=== PATIENT | male | born 1935 | race Caucasian/White ===

== ENCOUNTER 2019-11-23 13:36 | Inpatient (IN) ==
[2019-11-23] MEDS ORDERED: Isovue-370 500 ML BOTTLE IVP ONE (14:16)
[2019-11-23] MEDS ORDERED: Ondansetron 4 MG/2 ML VIAL IVP ONE (14:17)
[2019-11-23] MEDS ORDERED: Morphine Sulfate 2 MG/ML SYRINGE IVP ONE (14:17)
[2019-11-23] MEDS ORDERED: 0.9 % Sodium Chloride 1,000 ML IV ONE (14:17)
[2019-11-23 14:31] LABS: Basophils # 0.1 K/mcL (0.0-0.2); Basophils % 0.4 %; Eosinophils # 0.1 K/mcL (0.0-0.6); Eosinophils % 0.5 %; Hemoglobin 15.3 g/dL (12.9-16.9); Immature Granulocytes % 1.4 % (0-4); Lymphocytes # 2.6 K/mcL (0.6-4.6); Lymphocytes % 16.7 %; Mean Corpuscular Hemoglobin 30.6 pg (28.0-33.3); Mean Platelet Volume 9.7 fL (9.4-12.4); Monocytes # 1.4 K/mcL (0.0-1.3); Monocytes % 8.8 %; Neutrophils # 11.4 K/mcL (1.6-8.9); Platelet Count 212 K/mcL (140-400); Red Cell Distribution Width 13.8 % (11.5-14.5); Segmented Neutrophils % 72.2 %; White Blood Count 15.8 K/mcL (4.3-11.1)
[2019-11-23 14:57] LABS: Alanine Aminotransferase 23 Units/L (7-52); Albumin 4.4 g/dL (3.5-5.7); Albumin/Globulin Ratio 1.4 (1.1-2.2); Alkaline Phosphatase 33 Units/L (34-104); Aspartate Amino Transferase 31 Units/L (13-39); BUN/Creatinine Ratio 24 (6-26); Bilirubin,Total 1.1 mg/dL (0.3-1.0); Blood Urea Nitrogen 24 mg/dL (8-23); Carbon Dioxide 23 mEq/L (23-29); Chloride 99 mEq/L (98-107); Globulin 3.2 g/dL (2.4-3.5); Glucose 143 mg/dL (70-105); Lipase 40 Units/L (11-82); Osmolality,Calculated 287 (280-300); Potassium 3.7 mEq/L (3.5-5.1); Sodium 135 mEq/L (136-145); Total Protein 7.6 g/dL (6.4-8.9); eGFR For African Americans > 60 (> 60); eGFR For Non-African Americans > 60 (> 60)
[2019-11-23 14:58] LABS: Troponin I < 0.03 ng/mL (< 0.04)
[2019-11-23 16:13] LABS: INR 3.2; Prothrombin Time 36.1 Seconds (9.4-12.1)
[2019-11-23 16:15] LABS: Activated Partial Thrombo Time 41.2 Seconds (26.0-36.0)
[2019-11-23] MEDS ORDERED: Ondansetron 4 MG/2 ML VIAL IVP PRN (16:30)
[2019-11-23] MEDS ORDERED: Naloxone 0.4 MG/ML INJ IVP PRN (16:30)
[2019-11-23] MEDS ORDERED: Dextrose Gel 15 GM/37.5 ML TUBE PO PRN ×2 (16:34)
[2019-11-23] MEDS ORDERED: D5% in Water 1,000 ML IVC PRN (16:34)
[2019-11-23] MEDS ORDERED: *HR* Dextrose 50 % in Water (Syg) 50 ML SYRINGE IVP PRN (16:34)
[2019-11-23] MEDS: Ringers Solution, Lactated 1,000 ML IVC SCH (20:00)
[2019-11-23] MEDS: Insulin LISPRO 300 UNITS/3 ML VIAL SQ SCH ×2 (20:59→23:33)
[2019-11-24 00:54] LABS: Bilirubin,Urine Small (Negative); Blood,Urine Negative (Negative); Clarity,Urine Clear (Clear); Color,Urine Dark Yellow (Yellow); Glucose,Urine (UA) Normal (Normal); Ketones,Urine Negative (Negative); Leukocyte Esterase,Urine Negative (Negative); Nitrite,Urine Negative (Negative); PH,Urine 5.5 pH Units (5.0-8.0); Protein,Urine 30 mg/dL (Neg-Trace); Specific Gravity,Urine > 1.030 (1.010-1.025); Urobilinogen,Urine Normal (Normal)
[2019-11-24 00:54] LABS: INR 2.8
[2019-11-24 00:57] LABS: Activated Partial Thrombo Time 37.8 Seconds (26.0-36.0)
[2019-11-24 00:58] LABS: Bacteria,Urine None Seen per hpf (None-Few); Squamous Epithelial Cell,Urine Many per lpf (None-Few)
[2019-11-24 01:07] LABS: Basophils # 0.1 K/mcL (0.0-0.2); Basophils % 0.4 %; Eosinophils # 0.1 K/mcL (0.0-0.6); Eosinophils % 0.4 %; Hematocrit 41.4 % (37.5-50.1); Hemoglobin 14.1 g/dL (12.9-16.9); Immature Granulocytes % 1.1 % (0-4); Lymphocytes % 14.3 %; Mean Corpuscular HGB Conc 34.1 g/dL (31.6-35.5); Mean Corpuscular Hemoglobin 30.9 pg (28.0-33.3); Mean Corpuscular Volume 90.8 fL (83.0-100.0); Mean Platelet Volume 10.1 fL (9.4-12.4); Monocytes # 1.6 K/mcL (0.0-1.3); Monocytes % 11.5 %; Neutrophils # 10.1 K/mcL (1.6-8.9); Platelet Count 192 K/mcL (140-400); Red Blood Count 4.56 M/mcL (4.19-5.50); Segmented Neutrophils % 72.3 %
[2019-11-24 01:17] LABS: BUN/Creatinine Ratio 27 (6-26); Blood Urea Nitrogen 25 mg/dL (8-23); Calcium 9.2 mg/dL (8.6-10.3); Carbon Dioxide 23 mEq/L (23-29); Chloride 103 mEq/L (98-107); Glucose 131 mg/dL (70-105); Magnesium 1.9 mg/dL (1.6-2.6); Osmolality,Calculated 286 (280-300); Potassium 4.2 mEq/L (3.5-5.1); Sodium 135 mEq/L (136-145); eGFR For African Americans > 60 (> 60); eGFR For Non-African Americans > 60 (> 60)
[2019-11-24] MEDS ORDERED: 0.9 % Sodium Chloride 250 ML ONE ×2 (04:15→18:08)
[2019-11-24] MEDS: Insulin LISPRO 300 UNITS/3 ML VIAL SQ SCH ×4 (05:49→23:21)
[2019-11-24 07:14] LABS: INR 2.1; Prothrombin Time 23.7 Seconds (9.4-12.1)
[2019-11-24 07:16] LABS: Activated Partial Thrombo Time 33.7 Seconds (26.0-36.0)
[2019-11-24] MEDS ORDERED: *HR* Metoprolol 5 MG/5 ML VIAL IVP PRN (09:27)
[2019-11-24] MEDS: Pantoprazole 40 MG VIAL IVP SCH (10:59)
[2019-11-24] MEDS ORDERED: *HR* Phytonadione 10 MG/ML AMPUL SQ ONE (11:10)
[2019-11-24] MEDS: Ringers Solution, Lactated 1,000 ML IVC SCH ×3 (12:02→23:19)
[2019-11-25 04:22] LABS: Basophils % 0.3 %; Eosinophils % 0.4 %; Hematocrit 34.5 % (37.5-50.1); Immature Granulocytes % 1.6 % (0-4); Lymphocytes # 0.2 K/mcL (0.6-4.6); Lymphocytes % 2.3 %; Mean Corpuscular HGB Conc 33.3 g/dL (31.6-35.5); Mean Corpuscular Hemoglobin 31.1 pg (28.0-33.3); Mean Corpuscular Volume 93.2 fL (83.0-100.0); Mean Platelet Volume 9.7 fL (9.4-12.4); Monocytes # 0.4 K/mcL (0.0-1.3); Platelet Count 142 K/mcL (140-400); Red Cell Distribution Width 13.8 % (11.5-14.5); Segmented Neutrophils % 91.4 %; White Blood Count 9.9 K/mcL (4.3-11.1)
[2019-11-25 04:23] LABS: Hemoglobin 11.5 g/dL (12.9-16.9)
[2019-11-25 04:34] LABS: INR 1.4; Prothrombin Time 15.6 Seconds (9.4-12.1)
[2019-11-25 04:38] LABS: BUN/Creatinine Ratio 28 (6-26); Blood Urea Nitrogen 19 mg/dL (8-23); Calcium 8.2 mg/dL (8.6-10.3); Carbon Dioxide 24 mEq/L (23-29); Chloride 105 mEq/L (98-107); Glucose 131 mg/dL (70-105); Osmolality,Calculated 290 (280-300); Potassium 3.5 mEq/L (3.5-5.1); Sodium 138 mEq/L (136-145); eGFR For African Americans > 60 (> 60); eGFR For Non-African Americans > 60 (> 60)
[2019-11-25] MEDS: Insulin LISPRO 300 UNITS/3 ML VIAL SQ SCH ×5 (05:22→23:31)
[2019-11-25] MEDS: Ringers Solution, Lactated 1,000 ML IVC SCH ×2 (09:16→20:18)
[2019-11-25] MEDS: Pantoprazole 40 MG VIAL IVP SCH (09:16)
[2019-11-25] MEDS ORDERED: Hydrocortisone Sodium Succ 100 MG/2 ML VIAL IVP ONE ×2 (14:24→16:00)
[2019-11-25] MEDS ORDERED: *HR* Midazolam HCl 2 MG/2 ML VIAL ONE (15:40)
[2019-11-25] MEDS ORDERED: *HR* Rocuronium Bromide 50 MG/5 ML VIAL ONE (15:40)
[2019-11-25] MEDS ORDERED: Lidocaine -MPF 2% 2 ML VIAL ONE (15:40)
[2019-11-25] MEDS ORDERED: *HR* FentaNYL (PF) 100 MCG/2 ML VIAL ONE ×3 (15:40→17:33)
[2019-11-25] MEDS ORDERED: *HR* Propofol 200 MG/20 ML VIAL IVP ONE (15:40)
[2019-11-25] MEDS ORDERED: Heparin 1,000 UNITS/500 mL 500 ML ONE (15:52)
[2019-11-25] MEDS ORDERED: *HR* HYDROmorphone PF 0.5 MG/0.5 ML SYRINGE IVP PRN (16:36)
[2019-11-25] MEDS ORDERED: EPHEDrine 50 MG/ML VIAL ONE (17:19)
[2019-11-25] MEDS ORDERED: Bupivacaine/EPI 1:200k 0.25%PF 10 ML VIAL INFILT ONE (17:19)
[2019-11-25] MEDS ORDERED: ceFAZolin 2,000 MG in Water for inj. (sterile) 20 ML IVP ONE (17:45)
[2019-11-25] MEDS ORDERED: Dexamethasone 4 MG/ML VIAL ONE (17:45)
[2019-11-25] MEDS ORDERED: Ondansetron 4 MG/2 ML VIAL ONE (17:45)
[2019-11-25] MEDS ORDERED: *HR* Dextrose 50 % in Water (Syg) 50 ML SYRINGE IVP PRN (19:40)
[2019-11-25] MEDS ORDERED: Dextrose Gel 15 GM/37.5 ML TUBE PO PRN (19:40)
[2019-11-25] MEDS ORDERED: Naloxone 0.4 MG/ML INJ IVP PRN (19:40)
[2019-11-25] MEDS ORDERED: Ondansetron 4 MG/2 ML VIAL IVP PRN (19:40)
[2019-11-25] MEDS ORDERED: *HR* Metoprolol 5 MG/5 ML VIAL IVP PRN (19:40)
[2019-11-25] MEDS ORDERED: *HR* OxyCODONE Immed Rel 5 MG TABLET PO PRN (19:40)
[2019-11-25] MEDS: Albuterol 2.5 MG/3 ML NEBULIZER IH SCH ×2 (20:29→23:46)
[2019-11-25] MEDS: Hydrocortisone Sodium Succ 100 MG/2 ML VIAL IVP SCH (23:30)
[2019-11-25] MEDS ORDERED: Hydrocortisone Sodium Succ 100 MG/2 ML VIAL IVP SCH (23:30)
[2019-11-26] MEDS: Ringers Solution, Lactated 1,000 ML IVC SCH ×3 (02:15→16:15)
[2019-11-26] MEDS: Albuterol 2.5 MG/3 ML NEBULIZER IH SCH ×6 (03:30→23:34)
[2019-11-26] MEDS: Insulin LISPRO 300 UNITS/3 ML VIAL SQ SCH ×5 (04:21→23:16)
[2019-11-26 05:05] LABS: Basophils % 0.2 %; Hematocrit 35.8 % (37.5-50.1); Hemoglobin 11.9 g/dL (12.9-16.9); Immature Granulocytes % 1.1 % (0-4); Lymphocytes # 0.9 K/mcL (0.6-4.6); Lymphocytes % 6.1 %; Mean Corpuscular HGB Conc 33.2 g/dL (31.6-35.5); Mean Corpuscular Hemoglobin 31.3 pg (28.0-33.3); Mean Corpuscular Volume 94.2 fL (83.0-100.0); Mean Platelet Volume 10.2 fL (9.4-12.4); Monocytes # 0.5 K/mcL (0.0-1.3); Monocytes % 3.6 %; Neutrophils # 12.5 K/mcL (1.6-8.9); Platelet Count 148 K/mcL (140-400); Red Cell Distribution Width 13.7 % (11.5-14.5)
[2019-11-26 05:23] LABS: BUN/Creatinine Ratio 28 (6-26); Blood Urea Nitrogen 20 mg/dL (8-23); Calcium 8.3 mg/dL (8.6-10.3); Carbon Dioxide 23 mEq/L (23-29); Chloride 106 mEq/L (98-107); Glucose 167 mg/dL (70-105); Osmolality,Calculated 294 (280-300); Potassium 3.3 mEq/L (3.5-5.1); Sodium 139 mEq/L (136-145); eGFR For African Americans > 60 (> 60); eGFR For Non-African Americans > 60 (> 60)
[2019-11-26] MEDS ORDERED: Potassium Chloride 20 MEQ, Lidocaine 1% 2 ML in 0.9 % Sodium Chloride 250 ML IVPB ONE (07:40)
[2019-11-26] MEDS ORDERED: Metoprolol XL (24 HR) Succ 50 MG TAB.ER.24H PO SCH (09:00)
[2019-11-26] MEDS ORDERED: Pantoprazole 40 MG VIAL IVP SCH (09:00)
[2019-11-26] MEDS: Hydrocortisone Sodium Succ 100 MG/2 ML VIAL IVP SCH ×2 (09:09→17:05)
[2019-11-26] MEDS ORDERED: Acetaminophen 325 MG TABLET PO PRN (12:53)
[2019-11-26] MEDS ORDERED: *HR* OxyCODONE Immed Rel 5 MG TABLET PO PRN (12:55)
[2019-11-26] MEDS ORDERED: *HR* Warfarin 3 MG TABLET PO SCH (18:00)
[2019-11-26] MEDS ORDERED: Insulin LISPRO 300 UNITS/3 ML VIAL SQ SCH (20:15)
[2019-11-26] MEDS ORDERED: Hydrocortisone Sodium Succ 100 MG/2 ML VIAL IVP SCH (23:30)
[2019-11-27] MEDS: Insulin LISPRO 300 UNITS/3 ML VIAL SQ SCH ×5 (01:10→23:48)
[2019-11-27] MEDS ORDERED: Furosemide 20 MG/2 ML VIAL IVP ONE (01:29)
[2019-11-27] MEDS ORDERED: Morphine Sulfate 2 MG/ML SYRINGE IVP ONE (01:34)
[2019-11-27] MEDS: Ringers Solution, Lactated 1,000 ML IVC SCH (01:59)
[2019-11-27 02:27] LABS: INR 1.2; Prothrombin Time 14.1 Seconds (9.4-12.1)
[2019-11-27 02:33] LABS: Basophils % 0.2 %; Hematocrit 36.8 % (37.5-50.1); Hemoglobin 12.3 g/dL (12.9-16.9); Immature Granulocytes % 1.2 % (0-4); Lymphocytes # 0.6 K/mcL (0.6-4.6); Lymphocytes % 2.7 %; Mean Corpuscular HGB Conc 33.4 g/dL (31.6-35.5); Mean Corpuscular Hemoglobin 31.5 pg (28.0-33.3); Mean Corpuscular Volume 94.1 fL (83.0-100.0); Mean Platelet Volume 9.9 fL (9.4-12.4); Monocytes # 1.5 K/mcL (0.0-1.3); Monocytes % 7.2 %; Neutrophils # 18.7 K/mcL (1.6-8.9); Platelet Count 168 K/mcL (140-400); Red Blood Count 3.91 M/mcL (4.19-5.50); Red Cell Distribution Width 14.2 % (11.5-14.5); Segmented Neutrophils % 88.7 %
[2019-11-27] MEDS ORDERED: *HR* Metoprolol 5 MG/5 ML VIAL IVP ONE ×2 (02:37→03:12)
[2019-11-27] MEDS ORDERED: Levalbuterol Neb 1.25 MG/3 ML IH ONE (02:39)
[2019-11-27 02:41] LABS: BUN/Creatinine Ratio 36 (6-26); Blood Urea Nitrogen 20 mg/dL (8-23); Carbon Dioxide 24 mEq/L (23-29); Chloride 110 mEq/L (98-107); Glucose 137 mg/dL (70-105); Osmolality,Calculated 299 (280-300); Potassium 3.6 mEq/L (3.5-5.1); Sodium 142 mEq/L (136-145); eGFR For African Americans > 60 (> 60); eGFR For Non-African Americans > 60 (> 60)
[2019-11-27 02:47] LABS: White Blood Count 21.1 K/mcL (4.3-11.1)
[2019-11-27] MEDS: Albuterol 2.5 MG/3 ML NEBULIZER IH SCH (03:02)
[2019-11-27] MEDS ORDERED: DilTIAZem 50 MG in 0.9 % Sodium Chloride 40 ML IVC SCH (04:00)
[2019-11-27] MEDS ORDERED: *HR* LORazepam 2 MG/ML VIAL IVP ONE ×3 (04:10→17:25)
[2019-11-27] MEDS ORDERED: 0.9 % Sodium Chloride 500 ML ONE (04:27)
[2019-11-27] MEDS ORDERED: Furosemide 20 MG/2 ML VIAL IVP STA (05:56)
[2019-11-27] MEDS ORDERED: Amiodarone Premix 360 MG/200 ML BAG IVC ONE ×2 (06:01→08:03)
[2019-11-27] MEDS ORDERED: Amiodarone Premix 150 MG/100 ML BAG IVPB ONE ×2 (06:01→08:03)
[2019-11-27] MEDS ORDERED: Levalbuterol Neb 1.25 MG/3 ML IH STA (06:02)
[2019-11-27] MEDS ORDERED: *HR* Metoprolol 5 MG/5 ML VIAL IVP PRN (08:03)
[2019-11-27] MEDS ORDERED: *HR* Dextrose 50 % in Water (Syg) 50 ML SYRINGE IVP PRN (08:03)
[2019-11-27] MEDS ORDERED: Naloxone 0.4 MG/ML INJ IVP PRN (08:03)
[2019-11-27] MEDS ORDERED: Dextrose Gel 15 GM/37.5 ML TUBE PO PRN (08:03)
[2019-11-27] MEDS ORDERED: Acetaminophen 325 MG TABLET PO PRN (08:03)
[2019-11-27] MEDS ORDERED: *HR* OxyCODONE Immed Rel 5 MG TABLET PO PRN (08:03)
[2019-11-27] MEDS: DilTIAZem 50 MG in 0.9 % Sodium Chloride 40 ML IVC SCH (09:24)
[2019-11-27] MEDS ORDERED: Levalbuterol Neb 1.25 MG/3 ML IH SCH (10:00)
[2019-11-27] MEDS: Pantoprazole 40 MG VIAL IVP SCH (10:04)
[2019-11-27] MEDS: Piperacillin/Tazobactam 3.375 GM in 0.9 % Sodium Chloride Mini Bag 100 ML IVPB SCH ×2 (10:57→17:49)
[2019-11-27] MEDS: Levalbuterol Neb 1.25 MG/3 ML IH SCH ×3 (12:03→21:56)
[2019-11-27] MEDS ORDERED: Metoprolol XL (24 HR) Succ 50 MG TAB.ER.24H PO SCH (13:00)
[2019-11-27] MEDS: Aspirin Enteric Coated 81 MG Tablet PO SCH (13:10)
[2019-11-27] MEDS ORDERED: *HR* Heparin 5,000 UNIT/ML VIAL IVP PRN ×2 (13:55)
[2019-11-27] MEDS ORDERED: *HR* Heparin 5,000 UNIT/ML VIAL IVP ONE (13:55)
[2019-11-27] MEDS: Heparin 25,000 UNIT/250 ML D5W 25,000 UNIT/250 ML IV.SOLN IVC SCH (15:37)
[2019-11-27] MEDS: Hydrocortisone Sodium Succ 100 MG/2 ML VIAL IVP SCH ×2 (15:38→23:51)
[2019-11-27] MEDS ORDERED: Piperacillin/Tazobactam 3.375 GM in 0.9 % Sodium Chloride Mini Bag 100 ML IVPB SCH (16:00)
[2019-11-27] MEDS ORDERED: Metoprolol XL (24 HR) Succ 50 MG TAB.ER.24H PO ONE (17:02)
[2019-11-27] MEDS ORDERED: Furosemide 40 MG/4 ML VIAL IVP ONE (17:12)
[2019-11-27] MEDS ORDERED: *HR* Warfarin 3 MG TABLET PO SCH (18:00)
[2019-11-27] MEDS ORDERED: *HR* Warfarin 3 MG TABLET PO ONE (18:00)
[2019-11-27] MEDS ORDERED: *HR* Warfarin 5 MG TABLET PO ONE (18:00)
[2019-11-27] MEDS ORDERED: Warfarin perPT PO PRN (18:00)
[2019-11-27 22:07] LABS: BUN/Creatinine Ratio 29 (6-26); Blood Urea Nitrogen 23 mg/dL (8-23); Carbon Dioxide 27 mEq/L (23-29); Chloride 110 mEq/L (98-107); Glucose 113 mg/dL (70-105); Osmolality,Calculated 306 (280-300); Potassium 3.4 mEq/L (3.5-5.1); Sodium 146 mEq/L (136-145); eGFR For African Americans > 60 (> 60); eGFR For Non-African Americans > 60 (> 60)
[2019-11-28] MEDS: DilTIAZem 50 MG in 0.9 % Sodium Chloride 40 ML IVC SCH ×3 (01:40→09:55)
[2019-11-28] MEDS: Piperacillin/Tazobactam 3.375 GM in 0.9 % Sodium Chloride Mini Bag 100 ML IVPB SCH ×2 (01:44→09:12)
[2019-11-28] MEDS: Levalbuterol Neb 1.25 MG/3 ML IH SCH ×2 (03:48→10:35)
[2019-11-28 04:49] LABS: ABG Base Excess 5 mEq/L (-2 to 3); ABG HCO3 29 mEq/L (21-27); ABG Oxygen Saturation 94 % (95-98); ABG PCO2 39 mmHg (35-45); ABG PH 7.48 pH Units (7.32-7.45); ABG PO2 65 mmHg (85-104); ABG TCO2 30 mEq/L (20-26); Blood Gas Modality NIV
[2019-11-28 05:17] LABS: INR 1.5
[2019-11-28 05:33] LABS: Basophils # 0.1 K/mcL (0.0-0.2); Basophils % 0.4 %; Hematocrit 33.6 % (37.5-50.1); Hemoglobin 11.3 g/dL (12.9-16.9); Immature Granulocytes % 2.1 % (0-4); Lymphocytes # 1.3 K/mcL (0.6-4.6); Lymphocytes % 8.1 %; Mean Corpuscular HGB Conc 33.6 g/dL (31.6-35.5); Mean Corpuscular Hemoglobin 31.4 pg (28.0-33.3); Mean Corpuscular Volume 93.3 fL (83.0-100.0); Mean Platelet Volume 10.8 fL (9.4-12.4); Monocytes # 1.5 K/mcL (0.0-1.3); Monocytes % 9.2 %; Neutrophils # 13.1 K/mcL (1.6-8.9); Platelet Count 157 K/mcL (140-400); Red Cell Distribution Width 14.3 % (11.5-14.5); Segmented Neutrophils % 80.2 %; White Blood Count 16.4 K/mcL (4.3-11.1)
[2019-11-28] MEDS: Insulin LISPRO 300 UNITS/3 ML VIAL SQ SCH ×2 (05:37→11:16)
[2019-11-28 05:53] LABS: BUN/Creatinine Ratio 32 (6-26); Blood Urea Nitrogen 25 mg/dL (8-23); Calcium 7.9 mg/dL (8.6-10.3); Carbon Dioxide 26 mEq/L (23-29); Chloride 111 mEq/L (98-107); Glucose 151 mg/dL (70-105); Magnesium 2.1 mg/dL (1.6-2.6); Osmolality,Calculated 309 (280-300); Potassium 3.2 mEq/L (3.5-5.1); Sodium 146 mEq/L (136-145); eGFR For African Americans > 60 (> 60); eGFR For Non-African Americans > 60 (> 60)
[2019-11-28] MEDS ORDERED: Hydrocortisone Sodium Succ 100 MG/2 ML VIAL IVP SCH ×2 (09:00→14:00)
[2019-11-28] MEDS ORDERED: Metoprolol XL (24 HR) Succ 50 MG TAB.ER.24H PO SCH (09:00)
[2019-11-28] MEDS ORDERED: Furosemide 40 MG/4 ML VIAL IVP ONE ×2 (09:00→13:18)
[2019-11-28] MEDS: Aspirin Enteric Coated 81 MG Tablet PO SCH (09:10)
[2019-11-28] MEDS: Pantoprazole 40 MG VIAL IVP SCH (09:11)
[2019-11-28] MEDS ORDERED: Amiodarone Premix 150 MG/100 ML BAG IVPB ONE (10:10)
[2019-11-28] MEDS ORDERED: *HR* LORazepam 2 MG/ML VIAL IVP PRN ×2 (10:10→13:05)
[2019-11-28] MEDS ORDERED: Amiodarone Premix 360 MG/200 ML BAG IVC ONE (10:10)
[2019-11-28] MEDS ORDERED: Amiodarone Premix 360 MG/200 ML BAG IVC SCH (10:15)
[2019-11-28] MEDS ORDERED: Furosemide 40 MG/4 ML VIAL IVP SCH (10:15)
[2019-11-28] MEDS ORDERED: Ipratropium Neb 0.5 MG NEBULIZER IH PRN (10:59)
[2019-11-28] MEDS ORDERED: *HR* LORazepam 2 MG/ML VIAL IVP ONE ×2 (11:14→14:23)
[2019-11-28] MEDS: Nitroglycerin 0.4 MG TAB.SUBL SL SCH ×3 (11:42→12:51)
[2019-11-28] MEDS ORDERED: Morphine Sulfate 2 MG/ML SYRINGE IVP STA (12:31)
[2019-11-28 12:51] VITALS: BP 123/74
[2019-11-28] MEDS ORDERED: Dexmedetomidine HCl 400 MCG/100 ML MLS IVC ONE (12:56)
[2019-11-28 13:03] LABS: Basophils # 0.1 K/mcL (0.0-0.2); Basophils % 0.5 %; Hematocrit 34.8 % (37.5-50.1); Hemoglobin 11.2 g/dL (12.9-16.9); Immature Granulocytes % 2.6 % (0-4); Lymphocytes # 1.1 K/mcL (0.6-4.6); Lymphocytes % 7.2 %; Mean Corpuscular HGB Conc 32.2 g/dL (31.6-35.5); Mean Corpuscular Hemoglobin 30.3 pg (28.0-33.3); Mean Corpuscular Volume 94.1 fL (83.0-100.0); Mean Platelet Volume 10.4 fL (9.4-12.4); Monocytes # 1.5 K/mcL (0.0-1.3); Monocytes % 9.3 %; Neutrophils # 12.5 K/mcL (1.6-8.9); Platelet Count 166 K/mcL (140-400); Red Cell Distribution Width 14.4 % (11.5-14.5); Segmented Neutrophils % 80.4 %; White Blood Count 15.6 K/mcL (4.3-11.1)
[2019-11-28] MEDS: Heparin 25,000 UNIT/250 ML D5W 25,000 UNIT/250 ML IV.SOLN IVC SCH (13:04)
[2019-11-28] MEDS ORDERED: Morphine Sulfate 2 MG/ML SYRINGE IVP PRN ×2 (13:05)
[2019-11-28] MEDS: Dexmedetomidine HCl 400 MCG/100 ML MLS IVC SCH ×2 (13:10→17:27)
[2019-11-28 13:11] LABS: INR 1.7; Prothrombin Time 19.1 Seconds (9.4-12.1)
[2019-11-28] MEDS ORDERED: Furosemide 40 MG in 0.9 % Sodium Chloride 50 ML IV ONE (13:11)
[2019-11-28 13:13] LABS: Activated Partial Thrombo Time 41.2 Seconds (26.0-36.0)
[2019-11-28] MEDS ORDERED: Dexmedetomidine HCl 400 MCG/100 ML MLS IVC SCH (13:15)
[2019-11-28 13:36] LABS: Alanine Aminotransferase 22 Units/L (7-52); Albumin 3.2 g/dL (3.5-5.7); Albumin/Globulin Ratio 1.1 (1.1-2.2); Alkaline Phosphatase 33 Units/L (34-104); Aspartate Amino Transferase 32 Units/L (13-39); BUN/Creatinine Ratio 31 (6-26); Bilirubin,Direct 0.5 mg/dL (0.0-0.2); Bilirubin,Indirect 0.7 mg/dL (0.0-1.0); Bilirubin,Total 1.2 mg/dL (0.3-1.0); Blood Urea Nitrogen 28 mg/dL (8-23); Carbon Dioxide 27 mEq/L (23-29); Chloride 112 mEq/L (98-107); Glucose 118 mg/dL (70-105); Osmolality,Calculated 307 (280-300); Phosphorous 1.6 mg/dL (2.7-4.5); Potassium 3.5 mEq/L (3.5-5.1); Sodium 145 mEq/L (136-145); Total Protein 6.2 g/dL (6.4-8.9); Troponin I 0.66 ng/mL (< 0.04); eGFR For African Americans > 60 (> 60); eGFR For Non-African Americans > 60 (> 60)
[2019-11-28] MEDS ORDERED: *HR* FentaNYL (PF) 100 MCG/2 ML VIAL IVP ONE ×2 (14:07→14:23)
[2019-11-28 14:09] LABS: Bilirubin,Urine Negative (Negative); Blood,Urine Moderate (Negative); Color,Urine Yellow (Yellow); Glucose,Urine (UA) Normal (Normal); Ketones,Urine Negative (Negative); Leukocyte Esterase,Urine Negative (Negative); Nitrite,Urine Negative (Negative); Protein,Urine Trace mg/dL (Neg-Trace); Urobilinogen,Urine Normal (Normal)
[2019-11-28 14:15] LABS: Hyaline Casts,Urine None Seen per lpf (None-Few); Squamous Epithelial Cell,Urine Many per lpf (None-Few); WBC,Urine 0-3 per hpf (0-3)
[2019-11-28 14:19] LABS: Clarity,Urine Slightly Hazy (Clear)
[2019-11-28 14:31] LABS: Bacteria,Urine Few per hpf (None-Few)
[2019-11-28] MEDS: *HR* FentaNYL (PF) 100 MCG/2 ML VIAL IVP PRN ×2 (16:19→17:27)
[2019-11-28] MEDS: *HR* LORazepam 2 MG/ML VIAL IVP PRN ×2 (16:37→18:31)
[2019-11-28] MEDS ORDERED: *HR* Warfarin 5 MG TABLET PO SCH (18:00)
[2019-11-28] MEDS ORDERED: *HR* Warfarin 3 MG TABLET PO ONE (18:00)
[2019-11-28] MEDS ORDERED: Aminoglycoside Consult 1 EACH MC ONE (18:57)
== END 2019-11-28 18:58 | disposition expired | DRG 353 ==
LOC: 3ANU 13:36 → EMEROOARM 13:36 → SUATTDRO 17:03 → 3ANU 18:22 → SUATTDRO 11-24 11:57 → 2NNU 11-27 07:54 → ICNU 11-28 12:16
PROVIDERS: ADMIT Internal Medicine; ATTEND Internal Medicine